=== PATIENT | male | born 2005 | race Two or more races ===

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

== ENCOUNTER 2024-12-03 06:05 | Emergency (ER) | payer BC, MEDICAID ==
[~2024-12-03] VITALS: Ht 170.2 cm; Wt 69.9 kg
[~2024-12-03 06:05] MED LIST: CEPH-510 PO; IBUP-1456 PO; TRIA0.02 TOP
--- NOTE | 2024-12-03 06:23 | ED.PDOC ---
GI ASSESSMENT HPI Comments 19-year-old male presents here with vomiting x3 days. Denies any diarrhea. Reports mild epigastric discomfort only. Denies any fever or chills. Denies any sick contacts. No recent cough cold runny nose. Does not believe he ate any spoiled food. Patient does have a history of can avoid hyperemesis syndrome. States he does use cannabis last time he had a flare-up was approximately several months ago. Chief Complaint: Nausea/Vomiting Time Seen by MD: 07:05 Primary Care Provider: radha Villarreal Notes: Medications, Allergies Allergies: Coded Allergies: NO KNOWN ALLERGIES (Unverified , 05/17/17) Home Meds Active Scripts Triamcinolone Acetonide (Triamcinolone Acetonide) 0.025 % Cre, 1 APPLIC TOP BID, #30 GRAMS Prov:JULIANA FREDERICK 11/27/21 Ibuprofen (Ibuprofen) 800 Mg Tab, 1 TAB PO TID, #30 TAB Prov:JULIANA FREDERICK 11/27/21 Cephalexin ( Keflex 500) 500 Mg Cap, 1 CAP PO QID for 7 Days, #28 CAP Prov:JULIANA FREDERICK 11/27/21 Information Source: Patient Mode of Arrival: Ambulatory Timing: Days Duration: Since onset Prehospital treatment: None Quality: Sharp Severity: Moderate Recent: None Recent Hx of: None Pain Location: Diffuse Modifying Factors: Nothing Associated sign and symptoms: Nausea, Vomiting, Abdominal Pain Past Medical History Past Medical History (Other): [facility] Surgical History: Denies all surgeries Family History Family History: Reviewed,noncontributory to illness Social History Smoker: Non-Smoker Alcohol: Denies ETOH Use Drugs: Marijuana Lives In: Home Constitutional: denies: chills, diaphoresis, fatigue, fever, malaise, sweats, weakness, others EENTM: denies: blurred vision, double vision, ear bleeding, ear discharge, ear drainage, ear pain, ear ringing, eye pain, eye redness, hearing loss, mouth pain, mouth swelling, nasal discharge, nose bleeding, nose congestion, nose pain, photophobia, tearing, throat pain, throat swelling, voice changes, others Respiratory: denies: cough, hemoptysis, orthopnea, SOB at rest, shortness of breath, SOB with excertion, stridor, wheezing, others Cardiovascular: denies: chest pain, dizzy spells, diaphoresis, Dyspnea on exertion, edema, irregular heart beat, left arm pain, lightheadedness, palpitati ons, PND, syncope, others Gastrointestinal: reports: abdominal pain, nausea, vomiting; denies: abdomen distended, blood streaked bowels, constipated, diarrhea, dysphagia, difficulty swallowing, hematemesis, melena, poor appetite, poor fluid intake, rectal bleeding, rectal pain, others Genitourinary: denies: burning, dysuria, flank pain, frequency, hematuria, incontinence, penile discharge, penile sore, pain, testicle pain, testicle swelling, urgency, others Neurological: denies: dizziness, fainting, headache, left sided numbness, left sided weakness, numbness, paresthesia, pre-existing deficit, right sided numbness, right sided weakness, seizure, speech problems, tingling, tremors, weakness, others Musculoskeletal: denies: back pain, gout, joint pain, joint swelling, muscle pain, muscle stiffness, neck pain, others Integumetry: denies: bruises, change in color, change in hair/nails, dryness, laceration, lesions, lumps, rash, wounds, others Allergic/Immunocompromised: denies: Difficulty Healing, Frequent Infections, Hives, Itching, others Hematologic/Lymphatic: denies: anemia, blood clots, easy bleeding, easy bruising, swollen glands, others Endocrine: denies: excessive hunger, excessive sweating, excessive thirst, excessive urination, flushing, intolerance to cold, intolerance to heat, unexplained weight gain, unexplained weight loss, others Psychiatric: denies: anxiety, bipolar disorder, depression, hopeless, panic disorder, schizophrenia, sleepless, suicidal, others All Other Systems: Reviewed and Negative Physical Exam General Appearance: Moderate Distress HEENT: Normal ENT Inspection, Pharynx Normal, TMs Normal Neck: Full Range of Motion, Non-Tender, Normal, Normal Inspection Respiratory: Chest Non-Tender, Lungs Clear, No Accessory Muscle Use, No Respiratory Distress, Normal Breath Sounds Cardiovascular: No Edema, No JVD, No Murmur, No Gallop, Normal Peripheral P ulses, Regular Rate/Rhythm Breast Exam: Deferred Gastrointestinal: Non Tender, No Pulsatile Mass, Normal Bowel Sounds, Soft, Other (Mild epigastric tenderness to palpation) Genitalia: Deferred Pelvic: Deferred Rectal: Deferred Extremities: No calf tenderness, Normal capillary refill, Normal inspection, Normal range of motion, Non-tender, No pedal edema Musculoskeletal : Apperance: Normal Neurologic: Alert, 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 Was a procedure done?: No GI differential Dx Differential Diagnosis: Cholecystitis, Esophagitis, Gastritis/PUD, Gastroenteritis, Electrolyte Imbalance, Food Poisoning, Hypovolemia Other Differential Diagnosis Cannabinoid hyperemesis syndrome X-Ray, Labs, Meds, VS Vital Signs Date Time Temp Pulse Resp B/P (MAP) Pulse Ox O2 Delivery O2 Flow Rate FiO2 12/03/24 09:14 72 18 96 Room Air 12/03/24 09:14 97.6 72 18 123/73 (90) 96 97.6 12/03/24 06:06 98.8 83 20 124/103 99 98.8 Lab Test 12/03/24 06:39 Range/Units White Blood Count 19.1 H 4.4-10.8 10^3/uL Red Blood Count 5.46 4.5-5.90 10^6/uL Hemoglobin 15.9 13.5-17.5 g/dL Hematocrit 46.4 41.0-53.0 % Mean Corpuscular Volume 84.9 80.0-100.0 fL Mean Corpuscular Hemoglobin 29.0 28.0-32.0 pg Mean Corpuscular Hemoglobin Concent 34.2 32.0-36.0 g/dL Red Cell Distribution Width 13.4 11.8-14.3 % Platelet Count 347 140-450 10^3/uL Mean Platelet Volume 8.8 6.9-10.8 fL Neutrophils (%) (Auto) 89.0 H 37.0-80.0 % Lymphocytes (%) (Auto) 7.4 L 10.0-50.0 % Monocytes (%) (Auto) 3.5 0.0-12.0 % Eosinophils (%) (Auto) 0.0 0.0-7.0 % Basophils (%) (Auto) 0.1 0.0-2.0 % Neutrophils # (Auto) 17.0 H 1.6-8.6 10 ^3/uL Lymphocytes # (Auto) 1.4 0.4-5.4 10 ^3/uL Monocytes # (Auto) 0.7 0-1.3 10 ^3/uL Eosinophils # (Auto) 0 0-0.8 10 ^3/uL Basophils # (Auto) 0 0-0.2 10 ^3/uL Nucleated Red Blood Cells 0.0 % Sodium Level 143 136-145 mmol/L Potassium Level 3.6 3.5-5.1 mmol/L Chloride Level 105 98-107 mmol/L Carbon Dioxide Level 23 20-31 mmol/L Anion Gap 15 5-15 Blood Urea Nitrogen 16 9-23 mg/dL Creatinine 1.12 0.700-1.30 mg/dL Glomerular Filtration Rate Calc 96 >90 mL/min BUN/Creatinine Ratio 14.3 10.0-20.0 Serum Glucose 130 H 74-106 mg/dL Calcium Level 9.8 8.7-10.4 mg/dL Total Bilirubin 0.8 0.2-1.0 mg/dL Aspartate Amino Transferase (AST) 19 13-40 U/L Alanine Aminotransferase (ALT) 18 7-40 U/L Alkaline Phosphatase 65 46-116 U/L Total Protein 8.1 5.7-8.2 g/dL Albumin 5.0 H 3.2-4.8 g/dL Lipase 33 12-53 U/L Current Medications Medications (Trade) Dose Ordered Sig/Lance Route Start Time Stop Time Status Last Admin Sodium Chloride 1,000 ml @ 1,000 mls/hr Q1H ONCE IV 12/03/24 06:30 12/03/24 07:29 DC 12/03/24 08:17 Ondansetron HCl (Zofran) 4 mg ONCE ONCE IV 12/03/24 06:30 12/03/24 06:31 DC 12/03/24 08:19 Haloperidol Lactate (Haldol) 5 mg ONCE ONCE IM 12/03/24 07:30 12/03/24 07:31 DC 12/03/24 08:32 Ondansetron HCl (Zofran) 4 mg ONCE ONCE IV 12/03/24 09:00 12/03/24 09:01 DC 12/03/24 09:[address] [address] Ph: [phone] DIAGNOSTIC IMAGING Diagnostic Imaging Report : [id number] Signed PATIENT: MINERVA DE LA CRUZ ACCT: [id number] UNIT: [id number] : 2005 LOC: ER ROOM / BED: / AGE / SEX: 19 / M ADM STATUS: REG ER SERVICE 5 ORDERING PHYSICIAN: RICARDO MONTAÑO MD PROCEDURE(s): GBUS - GALLBLADDER REASON: Rule out cholecystitis ORDER NUMBER(s): [id number], ACCESSION NUMBER(s): [id number] INDICATION: Rule out cholecystitis TECHNIQUE: Multiple real-time sonographic images were obtained of the right upper quadrant. COMPARISON: None FINDINGS: The liver demonstrates homogeneous echotexture without focal mass lesions. The liver measures 15.3 cm. There is no intrahepatic or extrahepatic ductal dilatation. The common duct measures 0.3 cm. Gallbladder sludge is present. The gallbladder wall measures 0.2 cm and is within normal limits. The right kidney measures 9.8 cm. The right kidney is normal in contour, size, and shape. The echogenicity is normal. There is no hydronephrosis. The pancreas is not well visualized due to overlying bowel gas. IMPRESSION: Gallbladder sludge is present. ATED BY: GARCÍA BLAKE MD DICTATED DATE/TIME: 12/03/24807 SIGNED BY: GARCÍA BLAKE MD SIGNED DATE/TIME: 12/03/24807 CC: 19-year-old male presents here with abdominal pain and vomiting x3 days. He states he has been unable to keep anything down. On my examination he does have epigastric tenderness to palpation. At this time he does have a known history of cannabinoid abuse. And has a history of cannabinoid hyperemesis syndrome. He does not feel he ate some spoiled foods, and no sick contacts. Suspect this may be cannabinoid hyperemesis syndrome. Also considered possible pancreatitis, cholecystitis, biliary colic, gastritis. I have ordered a CBC, CMP, lipase, ultrasound of the gallbladder, I have written for 1 L IV fluids, Zofran and also Haldol IM. Time of 1ST Reevaluation: 07:35 Reevaluation 1ST: Unchanged Patient Education/Counseling: Diagnosis, Treatment Family Education/Counseling: No Family Present SEPSIS Sepsis Screen Date sepsis recognized/suspect: Dec 03, 2024 Time Sepsis recognized/suspect: 605 Recent Procedure: No On Antibiotic Therapy: No Respiratory Rate >20: No Heart Rate >90: No Temp<36 C (96.8 F) or >38.3 C: No SBP <90 or MAP <65 mmHG: No New Acute Mental Status Change: No Is the patient on CPAP, BIPAP,: No Physician Orders Urinalysis (12/03/24 06:27) Test, Urine (12/03/24 06:27) Gallbladder (12/03/24 07:26) Vital Signs Date Time Temp Pulse Resp B/P (MAP) Pulse Ox O2 Delivery O2 Flow Rate FiO2 12/03/24 09:14 72 18 96 Room Air 12/03/24 09:14 97.6 72 18 123/73 (90) 96 97.6 12/03/24 06:06 98.8 83 20 124/103 99 98.8 Laboratory Tests Test 12/03/24 06:39 White Blood Count 19.1 10^3/uL (4.4-10.8) H Medications Medications Dose Ordered Sig/Lance Route Start Time Stop Time Status Last Admin Dose Admin Haloperidol Lactate 5 mg ONCE ONCE IM 12/03/24 07:30 12/03/24 07:31 DC 12/03/24 08:32 Ondansetron HCl 4 mg ONCE ONCE IV 12/03/24 06:30 12/03/24 06:31 DC 12/03/24 08:19 Ondansetron HCl 4 mg ONCE ONCE IV 12/03/24 09:00 12/03/24 09:01 DC 12/03/24 09:07 Sodium Chloride 1,000 ml @ 1,000 mls/hr Q1H ONCE IV 12/03/24 06:30 12/03/24 07:29 DC 12/03/24 08:17 Departure 1 Departure Time of Disposition: 10:36 Impression: Primary Impression: Gallbladder sludge Additional Impression: Cannabinoid hyperemesis syndrome Disposition: 01 HOME / SELF CARE / HOMELESS Condition: Fair Additional Instructions: Return back to the ER in 12 hours for re-evaluation. Your blood count is high today at 19. I have sent a prescription for Zofran to pharmacy. However if your symptoms worsen or persist please return sooner. e-Prescriptions Ondansetron Odt 4MG Tab (ZOFRAN PO) 4 Mg Tb 4 MG PO Q6HP PRN, #14 TAB ODT TAB-DISSOLVE IN MOUTH, THEN SWALLOW Prov: RICARDO MONTAÑO MD 12/03/24 Discharged With: Self, Relative Critical Care Note Critical Care Time?: No Stability Stability form required: No Heart Score Heart Score: Heart Score Response (Comments) Value History N/A 0 EKG N/A 0 Age N/A 0 Risk Factors N/A 0 Troponin N/A 0 Total 0 I personally scribed for RICARDO MONTAÑO MD ([email or web address]) on 12/03/24 at 06:23. Electronically submitted by Kareen Robertson ([email or web address]). I personally scribed for RICARDO MONTAÑO MD ([email or web address]) on 12/03/24 at 06:54. Electronically submitted by Kareen Robertson ([email or web address]). I personally scribed for RICARDO MONTAÑO MD ([email or web address]) on 12/03/24 at 07:18. Electronically submitted by Kareen Robertson ([email or web address]). I personally scribed for RICARDO MONTAÑO MD ([email or web address]) on 12/03/24 at 08:12. Electronically submitted by Kareen Robertson ([email or web address]). RICARDO MONTAÑO MD Dec 03, 2024 06:23
[2024-12-03 07:13] LABS: Hematocrit 46.4 % (41.0-53.0); Hemoglobin 15.9 g/dL (13.5-17.5); Mean Corpuscular Hemoglobin 29.0 pg (28.0-32.0); Mean Corpuscular Volume 84.9 fL (80.0-100.0); Nucleated Red Blood Cells % 0.0 %
[2024-12-03 07:35] LABS: Alanine Aminotransferase 18 U/L (7-40); Alkaline Phosphatase 65 U/L (46-116); Anion Gap 15 (5-15); BUN/Creatinine Ratio 14.3 (10.0-20.0); Bilirubin, Total 0.8 mg/dL (0.2-1.0); Blood Urea Nitrogen 16 mg/dL (9-23); Calcium 9.8 mg/dL (8.7-10.4); Carbon Dioxide 23 mmol/L (20-31); Chloride 105 mmol/L (98-107); Lipase 33 U/L (12-53); Potassium 3.6 mmol/L (3.5-5.1); Sodium 143 mmol/L (136-145); Total Protein 8.1 g/dL (5.7-8.2)
[2024-12-03 07:45] LABS: Albumin 5.0 g/dL (3.2-4.8); Glucose 130 mg/dL (74-106)
--- NOTE | 2024-12-03 08:11 | DVH ---
INDICATION: Rule out cholecystitis TECHNIQUE: Multiple real-time sonographic images were obtained of the right upper quadrant. COMPARISON: None FINDINGS: The liver demonstrates homogeneous echotexture without focal mass lesions. The liver measu res 15.3 cm. There is no intrahepatic or extrahepatic ductal dilatation. The common duct measures 0.3 cm. Gallbladder sludge is present. The gallbladder wall measures 0.2 cm and is within normal limits. The right kidney measures 9.8 cm. The right kidney is normal in contour, size, and shape. The echogen icity is normal. There is no hydronephrosis. The pancreas is not well visualized due to overlying bowel gas. IMPRESSION: Gallbladder sludge is present.
[2024-12-03] MEDS: SODIUM CHLORIDE 0.9% 1,000 ML IV ONE (08:17)
[2024-12-03] MEDS: ONDANSETRON HCL 4 MG/2 ML VIAL IV ONE ×2 (08:19→09:07)
[2024-12-03] MEDS: HALOPERIDOL LACTATE 5 MG/ML INJ VIAL IM ONE (08:32)
[2024-12-03] MEDS ORDERED: ZOFR4T PO (10:37)
[2024-12-03 10:57] VITALS: BP 118/76; PULSE 76; RESP 20; TEMP 97; O2SAT 98
== END 2024-12-03 11:00 | disposition home or self-care (01) ==
LOC: ER 06:05
DX: K82.8 Other specified diseases of gallbladder (principal); F12.90 Cannabis use, unspecified, uncomplicated; Z79.1 Long term (current) use of non-steroidal anti-inflammatories (NSAID); Z79.899 Other long term (current) drug therapy
CPT/HCPCS: 36415; 76705; 80053; 83690; 85025; 96361; 96372; 96374; 96375; 99285; J1630; J2405; J7030